=== PATIENT | female | born 1965 | race Caucasian/White ===

== ENCOUNTER → 2019-09-09 | Day surgery (SDC) | payer MEDICAID ==
[~2019-09-09] MED LIST: ASA81BEC PO; BUPROPION XL300 MG PO; CARBAMAZEPINE100 M2 PO; CARVEDILOL12.5 MG PO; CLARITIN10 M2 PO; COLESTIPOL HCL1 G1 PO; FLUOXETINE HCL60 MG PO; GLIPIZIDE5 MG PO; ISOSORBIDE MONO60 M1 PO; JANUVIA100 MG PO; KLOR-CON 1010 MEQ PO; LASIX 40 MG TAB40 MG PO; NEURONTIN 300M300 M2 PO; NORCO 5-325 TA1 EAC1 PO; NORVASC10 MG PO; OXYBUTYNIN 5 MG5 M2 PO; PROTONIX40 M2 PO; SINGULAIR 10 MG10 M1 PO; TOPAMAX100 MG PO; ZOCOR 20 MG TAB20 M1 PO
--- NOTE | ~2019-09-09 | PROC ---
[address] [address] PROCEDURE REPORT Name: MATT BUTLER Room: [facility].#: [id number] Admission: 09/09/19 Attend Phys: Jonathan Schaefer MD Discharge: Date of : 61 Report #: [id number] THIS REPORT FOR: //name// cc: Raj Self MD, Syed MD ~ THIS REPORT FOR: //name// For GI report, please see the Provation report in Per[employer] content. By: [id number] Records Staff CHRISTOPHER /CARLYLE
[2019-09-09 09:28] LABS: ABSOLUTE BASOPHILS 0.1 thou/uL (0.0-0.2); ABSOLUTE EOSINOPHILS 0.1 thou/uL (0.0-0.7); ABSOLUTE MONOCYTES 0.8 thou/uL (0.0-1.2); ABSOLUTE NEUTROPHILS 7.6 thou/uL (1.6-8.1); BASOPHILS 0.8 %; EOSINOPHILS 1.3 %; HEMATOCRIT 41.2 % (37.0-47.0); HEMOGLOBIN 13.8 gm/dL (12.0-15.0); LYMPHOCYTES 18.9 %; MCHC 33.5 g/dL (28.0-37.0); MCV 89.7 fL (80.0-100.0); MONOCYTES 7.6 %; MPV 8.2 fl. (7.2-11.1); NUCLEATED RBCS 0 /100WBC; PLATELET COUNT* 224 thou/uL (150-400); POLYS 71.4 %; RBC 4.59 mil/uL (4.20-5.00); RDW-CV 17.1 % (10.5-14.5); WBC 10.6 thou/uL (4.0-11.0)
[2019-09-09 09:40] LABS: CALCIUM 8.4 mg/dL (8.5-10.1); CREATININE 1.1 mg/dL (0.6-1.3); POTASSIUM 3.6 mmol/L (3.5-5.1)
--- NOTE | 2019-09-10 13:45 | EKG ---
[place] [address] ELECTROCARDIOGRAM REPORT Name: MATT BUTLER Room: [facility].#: [id number] Admission: 09/09/19 Attend Phys: Jonathan Schaefer, Discharge: Date of : 61 Date of Service: 09/09/19 0919 Report #: [id number] THIS REPORT FOR: cc: Raj Self MD, Syed MD Holkins,Larry Turpin MD [facility] ~ THIS REPORT FOR: //name// [facility] Test Date: 2019-09-09 Test Time: 09:19:01 Pat Name: MATT BUTLER Department: Room: Gender: F [employer]: : 1965 Requested By: Jonathan Schaefer Order Number: [id number] Reading MD: Larry Taylor Measurements Intervals Kane Rate: 61 P: 22 MD: 167 QRS: -34 QRSD: 110 T: -8 QT: 444 QTc: 448 Interpretive Statements Sinus rhythm Abnormal R-wave progression, late transition Left ventricular hypertrophy Nonspecific T abnormalities, inferior leads No previous ECG available for comparison Electronically Signed On 09-09-2019 12:52:54 [employer] INSURANCE ADVISER by Larry Taylor [email or web address] <ELECTRONICALLY SIGNED> By: Larry Taylor MD, [facility] 09/09/19 1252 8 8 Larry Taylor MD, [facility] /EPI
== END | disposition home or self-care (01) ==
LOC: M.SUR 08:54
PROVIDERS: Internal Medicine Gastroenterology
DX: R11.2 Nausea with vomiting, unspecified (principal); K21.9 Gastro-esophageal reflux disease without esophagitis; J44.9 Chronic obstructive pulmonary disease, unspecified; G47.30 Sleep apnea, unspecified; I10 Essential (primary) hypertension; E11.9 Type 2 diabetes mellitus without complications; F41.9 Anxiety disorder, unspecified; F17.210 Nicotine dependence, cigarettes, uncomplicated; Z98.890 Other specified postprocedural states; Z79.899 Other long term (current) drug therapy; Z90.710 Acquired absence of both cervix and uterus; Z90.49 Acquired absence of other specified parts of digestive tract; Z98.41 Cataract extraction status, right eye; Z98.42 Cataract extraction status, left eye; Z88.0 Allergy status to penicillin; Z88.8 Allergy status to other drugs, medicaments and biological substances